=== PATIENT | female | born 1970 ===

== ENCOUNTER 2023-10-20 08:40 | Outpatient (OUT) | payer OTHER, SELFPAY ==
--- NOTE | 2023-10-20 | XR_ITS ---
The [address] [address] Patient Name: VALENCIA PETERS MRN: [id number] date: 1970 Sex: F Assigned Patient Location: Current Patient Location: Accession/Order Number: [id number] Exam Date: 10/20/2023 08:53 Report Date: 10/21/2023 08:24 At the request of: GEORGINA WHYTE Procedure: XR cervical spine w flex/ext EXAMINATION: XR cervical spine w flex/ext HISTORY: CERVICAL SPINE PAIN COMPARISON: No relevant comparison available. FINDINGS: BONES: Slight reversal of normal cervical lordotic curvature. No fracture, bone lesion, or significant listhesis. No significant change in alignment during flexion and extension. Multilevel mild degenerative facet arthropathy. DISC SPACES: Moderate-marked narrowing C5-6 with prominent posterior disc osteophyte complex. Mild narrowing C6-7. PARASPINOUS: Negative. No paraspinous abnormality is seen. OTHER: Negative. XR/XR cervical spine w flex/ext IMPRESSION: 1. Degenerative disc disease of lower cervical spine, greatest at C5-6. Electronically authenticated by: GEORGINA MÉNDEZ Date: 10/21/2023 08:24
== END 2023-10-20 08:41 | disposition home or self-care (01) ==
LOC: EC 08:45
PROVIDERS: PCP Orthopaedic Surgery; Visit Provider Orthopaedic Surgery
DX: M54.2 Cervicalgia (principal)
CPT/HCPCS: 72052